=== PATIENT | male | born 1955 | race Caucasian/White ===

== ENCOUNTER 2016-08-18 04:23 | Emergency (ER) | payer OTHER ==
[~2016-08-18] VITALS: Ht 177.8 cm; Wt 117.0 kg
[~2016-08-18 04:23] MED LIST: ASPI-664 PO; ATEN-51 PO; AZIT250T94 PO; BENA10TA48 PO; CODE118S PO; CRES10 PO; IBUP-1542 PO; NAPR-260 PO; PARO30TA48 PO; ULT50 PO
[2016-08-18 04:26] VITALS: Ht 177.8 cm; Wt 117.0 kg
[2016-08-18 04:33] VITALS: BP 176/86; RESP 20; TEMP 97.3
--- NOTE | 2016-08-18 04:35 | ERD ---
ER Documentation Chief Complaint Date/Time DATE: 08/18/16 TIME: 04:34 Chief Complaint sp ground level fall since yesterday, left wrist pain HPI Patient is a 60-year-old male who tripped over a brick yesterday and landed on his left wrist. He now has 10 out of 10 pain in the wrist. Denies any numbness or tingling. Denies any head injury, neck pain, or KO. He Hong wrap his wrist which helped with the pain. Has not taken any medication for pain. ROS All systems reviewed and are negative except as per history of present illness. Medications Home Meds Active Scripts Naproxen* (Naprosyn*) 500 Mg Tablet, 500 MG PO BID Y for PAIN AND/OR INFLAMMATION, #30 TAB Prov:JOSÉ MIGUEL RICHARDSON AIRCRA[employer] MAINTENANCE TECHNICIAN 03/11/16 Tramadol HCl (Tramadol HCl) 50 Mg Tablet, 50 MG PO Q4 Y for PAIN, #20 TAB Prov:APPLE SUN I. AIRCRAFT MAINTENANCE TECHNICIAN 12/11/15 Ibuprofen* (Ibuprofen*) 600 Mg Tablet, 600 MG PO Q6 for 14 Days, TAB Prov:APPLE SUN I. AIRCRAFT MAINTENANCE TECHNICIAN 08/12/15 Ibuprofen* (Motrin*) 600 Mg Tab, 600 MG PO Q6H Y for PAIN AND OR ELEVATED TEMP, #30 Prov:DONOVAN SPRINGER MD 06/07/15 Promethazine w/Codeine (Phenergan w/Codeine Syrup) 120 Ml Syrup, 5 ML PO Q4H Y for COUGH for 7 Days, ML Prov:DONOVAN SPRINGER MD 06/07/15 Azithromycin* (Zithromax*) 250 Mg Tablet, 250 MG PO .SAMIR DIRECTED, #6 TAB TAKE 500 MG (2 TABS) THE FIRST DAY THEN 250 MG (1 TAB) DAYS 2-5 Prov:DONOVAN SPRINGER MD 06/07/15 Reported Medications Rosuvastatin Calcium* (Crestor*) 10 Mg Tablet, 10 MG PO HS, TAB 07/20/14 Paroxetine Hcl* (Paxil*) 30 Mg Tablet, 30 MG PO DAILY, TAB 07/20/14 Benazepril Hcl* (Benazepril Hcl*) 10 Mg Tablet, 10 MG PO DAILY, TAB 07/20/14 Atenolol* (Atenolol*) 25 Mg Tablet, 25 MG PO DAILY, TAB 07/20/14 Aspirin* (Aspirin* (EC)) 81 Mg Tablet.dr, 81 MG PO DAILY, TAB 07/20/14 Allergies Allergies: Coded Allergies: No Known Allergies (Verified Allergy, Mild, 03/11/16) PMhx/Soc History of Surgery: No Anesthesia Reaction: No Hx Neurological Disorder: No Hx Respiratory Disorders: No Hx Cardiac Disorders: No Hx Psychiatric Problems: No Hx Miscellaneous Medical Probl: Yes (diabetes, hypertension, depression) Hx Alcohol Use: No Hx Substance Use: No Hx Tobacco Use: No FmHx Family History: diabetes Physical Exam Vitals Vital Signs Date Time Temp Pulse Resp B/P Pulse Ox O2 Delivery O2 Flow Rate FiO2 08/18/16 04:33 97.3 20 176/86 98 08/18/16 04:26 97.3 83 20 176/86 98 Physical Exam General: well developed, well nourished, alert, nontoxic, no distress Head: normocephalic, atraumatic Neck: Supple, nontender, no lymphadenopathy, no midline tenderness Respiratory: Clear to auscaultation bilaterally, speaks in full sentences, no use of accesory muscles or labored breathing, no rales, ronchi, or wheezing Cardiovascular: RRR, No murmurs Extremities: Left wrist: Radial pulse 2+, no bony abnormalities, no snuffbox tenderness, able to make a fist and oppose thumb to all digits, capillary refill less than 2 seconds, sensation to light touch intact, tenderness to palpation over the ulnar aspect of the wrist Results 24 hrs Current Medications Medications (Trade) Dose Ordered Sig/Deven Route PRN Reason Start Time Stop Time Status Last Admin Dose Admin Acetaminophen/ Hydrocodone Bitart (Walker (10/325)) 1 tab ONCE ONCE PO 08/18/16 05:00 08/18/16 05:01 DC 08/18/16 04:36 Procedures/MDM Patient has wrist pain after mechanical fall. He is neurovascular intact. He Hong wrap his wrist. He was given Walker here for pain control and x-ray was ordered. X-ray shows old fracture of the scaphoid waist and foreign body within the lateral soft tissue which was present on the prior study done in September 2014. Patient was given copy of radiology reports we can follow with primary care as well as prescription for pain medication and he was placed in a Velcro wrist splint. Recommended this patient follow up with her primary care doctor within 48 hours or return to the emergency room for any worsening of symptoms. However this time I do believe there is suitable for outpatient management. I answered all their questions and they agreed with the plan and were discharged home. Departure Diagnosis: Primary Impression: Wrist sprain Condition: Stable DANII BENITEZ PA-C Aug 18, 2016 04:35
[2016-08-18] MEDS ORDERED: HYDROCODONE/APAP (10/325) TAB PO ONE (05:00)
--- NOTE | 2016-08-18 05:50 | RADRPT ---
PROCEDURE: Left wrist. CLINICAL INDICATION: Pain. TECHNIQUE: Three views including PA, lateral and oblique views were performed. COMPARISON: 09/19/2014. FINDINGS: There is a fracture of the scaphoid waist. There is no dislocation. Bone mineralization is within normal limits. There is a 3 x 2 mm radiodensity within the lateral soft tissue. IMPRESSION: Old fracture of the scaphoid waist. Foreign body within the lateral soft tissue, present on the prior study of 09/19/2014. .Luis Boudreaux MD, MD Date Time Electronically viewed and signed by .Luis Boudreaux MD, on 08/18/2016 05:50 .T/
[2016-08-18] MEDS ORDERED: HYDR-902 PO (05:57)
[2016-08-18] MEDS ORDERED: NAPR-260 PO (05:57)
== END 2016-08-18 06:02 | disposition home or self-care (01) ==
LOC: FTE 04:23
DX: S63.502A Unspecified sprain of left wrist, initial encounter (principal); I10 Essential (primary) hypertension; E11.9 Type 2 diabetes mellitus without complications; W01.198A Fall on same level from slipping, tripping and stumbling with subsequent striking against other object, initial encounter; Y92.9 Unspecified place or not applicable; Z79.82 Long term (current) use of aspirin
CPT/HCPCS: 29125; 73110; Z7502; Z7610

== ENCOUNTER 2016-09-02 03:56 | Emergency (ER) | payer OTHER ==
[~2016-09-02] VITALS: Ht 182.9 cm; Wt 116.5 kg
[~2016-09-02 03:56] MED LIST changes: +HYDR-902 PO
[2016-09-02 03:58] VITALS: Ht 182.9 cm; Wt 116.5 kg
--- NOTE | 2016-09-02 05:18 | ERD ---
ER Documentation Chief Complaint Date/Time DATE: 09/02/16 TIME: 05:14 Chief Complaint left hand pain x 2 weeks, sp ground level fall 2 weeks ago HPI 60-year-old male who presents with left hand pain for approximately 2 weeks. The patient states that he sustained a ground-level fall. Since that time he has described persistent pain. He is followed up with his primary care physician and is being referred to hand specialist. The patient describes throbbing moderate to severe pain to the left wrist that is worse with movement and improved with rest. He is only taking tramadol and states that he ran out of his Rodanthe. ROS All systems reviewed and are negative except as per history of present illness. Medications Home Meds Active Scripts Hydrocodone/Acetaminophen (Rodanthe 10-325 Tablet) 1 Each Tablet, 1 TAB PO Q6H Y for PAIN, #15 TAB Prov:DANII BENITEZ PA-C 08/18/16 Naproxen* (Naprosyn*) 500 Mg Tablet, 500 MG PO BID Y for PAIN AND/OR INFLAMMATION, #30 TAB Prov:DANII BENITEZ PA-C 08/18/16 Naproxen* (Naprosyn*) 500 Mg Tablet, 500 MG PO BID Y for PAIN AND/OR INFLAMMATION, #30 TAB Prov:JOSÉ MIGUEL RICHARDSON GINNER 03/11/16 Tramadol HCl (Tramadol HCl) 50 Mg Tablet, 50 MG PO Q4 Y for PAIN, #20 TAB Prov:APPLE SUN I. GINNER 12/11/15 Ibuprofen* (Ibuprofen*) 600 Mg Tablet, 600 MG PO Q6 for 14 Days, TAB Prov:APPLE SUN I. GINNER 08/12/15 Ibuprofen* (Motrin*) 600 Mg Tab, 600 MG PO Q6H Y for PAIN AND OR ELEVATED TEMP, #30 Prov:DONOVAN SPRINGER MD 06/07/15 Promethazine w/Codeine (Phenergan w/Codeine Syrup) 120 Ml Syrup, 5 ML PO Q4H Y for COUGH for 7 Days, ML Prov:DONOVAN SPRINGER MD 06/07/15 Azithromycin* (Zithromax*) 250 Mg Tablet, 250 MG PO .SelenaPACK DIRECTED, #6 TAB TAKE 500 MG (2 TABS) THE FIRST DAY THEN 250 MG (1 TAB) DAYS 2-5 Prov:DONOVAN SPRINGER MD 06/07/15 Reported Medications Rosuvastatin Calcium* (Crestor*) 10 Mg Tablet, 10 MG PO HS, TAB 07/20/14 Paroxetine Hcl* (Paxil*) 30 Mg Tablet, 30 MG PO DAILY, TAB 07/20/14 Benazepril Hcl* (Benazepril Hcl*) 10 Mg Tablet, 10 MG PO DAILY, TAB 07/20/14 Atenolol* (Atenolol*) 25 Mg Tablet, 25 MG PO DAILY, TAB 07/20/14 Aspirin* (Aspirin* (EC)) 81 Mg Tablet.dr, 81 MG PO DAILY, TAB 07/20/14 Allergies Allergies: Coded Allergies: No Known Allergies (Verified Allergy, Mild, 03/11/16) PMhx/Soc History of Surgery: Yes (carpel tunnel bilateral) Anesthesia Reaction: No Hx Neurological Disorder: No Hx Respiratory Disorders: No Hx Cardiac Disorders: No Hx Psychiatric Problems: No Hx Alcohol Use: No Hx Substance Use: No Hx Tobacco Use: No FmHx Family History: No diabetes Physical Exam Vitals Vital Signs Date Time Temp Pulse Resp B/P Pulse Ox O2 Delivery O2 Flow Rate FiO2 09/02/16 03:58 97.8 79 20 162/79 100 Physical Exam General: Well developed, well nourished, no acute distress Head: Normocephalic, atraumatic. Eyes: EOM intact ENT: Moist mucous membranes Neck: Full ROM Respiratory: No respiratory distress Cardiovascular: Good capillary refil Abdominal: Nondistended : Deferred MSK: Soft tissue tenderness and swelling is noted to the left wrist and focal tenderness noted to the radial styloid as well as around the scaphoid bone, no snuffbox tenderness. Radial, median, ulnar nerves appear to be intact, slightly limited range of motion secondary to pain. Good capillary refill. Neurologic: Alert and oriented, moving all extremities, normal speech, steady gait Skin: No rash Psych: Normal mood Procedures/MDM EKG, MONITORS, & DIAGNOSTIC IMAGING: X-ray left wrist: Radiology read -> IMPRESSION: Old fracture of the scaphoid waist. Foreign body within the lateral soft tissue, present on the prior study. PROCEDURES: Splint Application Note: Splint type: Fabricated thumb spica Ortho-Glass Extremity: Left wrist Indication: Cannot rule out scaphoid fracture The patient was consented at bedside prior to splint application and states understanding of risks, benefits, and alternatives. The patient was neurovascularly intact prior to and status post application of the splint. The patient tolerated the procedure well and there were no complications. MEDICAL DECISION MAKING: The patient has persistent left wrist pain with a fall on outstretched hand. The patient seems to have focal tenderness around the carpal bones on the radial side of the wrist. This does raise the concern for possible occult scaphoid fracture. Repeat x-ray imaging seems to be indicated. The patient will be immobilized. His primary care physician is arranging follow-up with a hand specialist. He has had hand surgery on that hand before. The patient is asking for refill of narcotic pain medication. I explained to the patient that we do not regularly do this in the emergency room. The patient 's cures report does show multiple prescriptions of narcotic pain medications but no significant the base of behavior is noted. The patient does get regular prescriptions for benzodiazepines. He is not asking for refill of that medication at this time. A very small prescription seems to be reasonable at this time. ER COURSE: The patient's x-ray and immobilization are documented above. The patient does have appropriate outpatient hand surgery follow-up and can be safely discharged from the emergency room. I kept the patient and/or family informed of laboratory and diagnostic imaging results throughout the emergency room course. DISPOSITION PLAN: We discussed follow up with the patient's primary care doctor within 24 to 48 hours as needed. We also discussed return to the emergency room for worsening symptoms or worsening condition. Discharge Medications: Rodanthe 10 mg a total of 8 tablets Departure Diagnosis: Primary Impression: Left wrist pain Additional Impression: Medication refill Condition: Stable SILVESTRE CEBALLOS MD Sep 02, 2016 05:18
--- NOTE | 2016-09-02 05:38 | RADRPT ---
PROCEDURE: Left wrist. CLINICAL INDICATION: Pain. TECHNIQUE: Three views including PA, lateral and oblique views were performed. COMPARISON: 08/18/2016. FINDINGS: There is an old fracture of the scaphoid waist. There is no dislocation. The joint spaces are with in normal limits. Bone mineralization is within normal limits. There is a 3 x 2 mm radiodensity wi thin the lateral soft tissue. IMPRESSION: Old fracture of the scaphoid waist. Foreign body within the lateral soft tissue, present on the prior study. .Luis Boudreaux MD, MD Date Time Electronically viewed and signed by .Luis Boudreaux MD, on 09/02/2016 05:38 .T/
[2016-09-02] MEDS ORDERED: HYDR-902 PO (05:43)
[2016-09-02 05:53] VITALS: BP 164/77; PULSE 88; RESP 20; TEMP 97.8
== END 2016-09-02 05:55 | disposition home or self-care (01) ==
LOC: FTE 03:56
DX: S69.92XA Unspecified injury of left wrist, hand and finger(s), initial encounter (principal); I10 Essential (primary) hypertension; E11.9 Type 2 diabetes mellitus without complications; W18.39XA Other fall on same level, initial encounter; Y92.9 Unspecified place or not applicable; Z79.82 Long term (current) use of aspirin; Z76.0 Encounter for issue of repeat prescription
CPT/HCPCS: 29125; 73110; Z7502

== ENCOUNTER 2016-12-02 04:17 | Emergency (ER) | payer OTHER ==
[~2016-12-02] VITALS: Ht 167.6 cm; Wt 113.5 kg
[~2016-12-02 04:17] MED LIST changes: +TRAM50TA2 PO; -ULT50 PO
[2016-12-02 04:20] VITALS: Ht 167.6 cm; Wt 113.5 kg
[2016-12-02] MEDS ORDERED: HYDROCODONE/APAP (10/325) TAB PO ONE (05:00)
--- NOTE | 2016-12-02 05:08 | ERD ---
ER Documentation Chief Complaint Date/Time DATE: 12/02/16 TIME: 05:01 Chief Complaint fell off bed at 12am, c/o mid back pain HPI 60-year-old male presents here in emergency department for complaints of lower back pain after falling off the bed 5 hours ago. Patient described the pain as sharp pain, 6/10 scale, is worse upon movement. Patient denies any incontinence. Patient denies any fever or chills. Patient denies any numbness or tingling. Patient was able to ambulate. Patient denies any deformity. Patient did not take any medications elevated symptoms. ROS All systems reviewed and are negative except as per history of present illness. Medications Home Meds Active Scripts Cyclobenzaprine Hcl* (Cyclobenzaprine Hcl*) 10 Mg Tablet, 10 MG PO TID, #15 TAB Prov:PARISH WALKER [employer]ARM [employer]IVER 12/02/16 Ibuprofen* (Motrin*) 600 Mg Tab, 600 MG PO Q6H Y for PAIN AND OR ELEVATED TEMP, #30 TAB Prov:PARISH WALKER NP 12/02/16 Hydrocodone/Acetaminophen (Redfield 5-325 Tablet) 1 Each Tablet, 1 TAB PO Q6H Y for SEVERE PAIN LEVEL 7-10, #20 TAB Prov:PARISH WALKER NP 12/02/16 Hydrocodone/Acetaminophen (Redfield 10-325 Tablet) 1 Each Tablet, 1 TAB PO Q6H Y for PAIN, #8 TAB Prov:SILVESTRE CEBALLOS MD 09/02/16 Hydrocodone/Acetaminophen (Redfield 10-325 Tablet) 1 Each Tablet, 1 TAB PO Q6H Y for PAIN, #15 TAB Prov:DANII BENITEZ PA-C 08/18/16 Naproxen* (Naprosyn*) 500 Mg Tablet, 500 MG PO BID Y for PAIN AND/OR INFLAMMATION, #30 TAB Prov:DANII BENITEZ PA-C 08/18/16 Naproxen* (Naprosyn*) 500 Mg Tablet, 500 MG PO BID Y for PAIN AND/OR INFLAMMATION, #30 TAB Prov:JOSÉ MIGUEL RICHARDSON NP 03/11/16 Tramadol HCl (Tramadol HCl) 50 Mg Tablet, 50 MG PO Q4 Y for PAIN, #20 TAB Prov:APPLE SUN I. FARM TRUCK [employer]IVER 12/11/15 Ibuprofen* (Ibuprofen*) 600 Mg Tablet, 600 MG PO Q6 for 14 Days, TAB Prov:APPLE SUN I. [employer]ARM TRUCK [employer]IVER 08/12/15 Ibuprofen* (Motrin*) 600 Mg Tab, 600 MG PO Q6H Y for PAIN AND OR ELEVATED TEMP, #30 Prov:DONOVAN SPRINGER MD 06/07/15 Promethazine w/Codeine (Phenergan w/Codeine Syrup) 120 Ml Syrup, 5 ML PO Q4H Y for COUGH for 7 Days, ML Prov:DONOVAN SPRINGER MD 06/07/15 Azithromycin* (Zithromax*) 250 Mg Tablet, 250 MG PO .ZPACK DIRECTED, #6 TAB TAKE 500 MG (2 TABS) THE FIRST DAY THEN 250 MG (1 TAB) DAYS 2-5 Prov:DONOVAN SPRINGER MD 06/07/15 Reported Medications Rosuvastatin Calcium* (Crestor*) 10 Mg Tablet, 10 MG PO HS, TAB 07/20/14 Paroxetine Hcl* (Paxil*) 30 Mg Tablet, 30 MG PO DAILY, TAB 07/20/14 Benazepril Hcl* (Benazepril Hcl*) 10 Mg Tablet, 10 MG PO DAILY, TAB 07/20/14 Atenolol* (Atenolol*) 25 Mg Tablet, 25 MG PO DAILY, TAB 07/20/14 Aspirin* (Aspirin* (EC)) 81 Mg Tablet.dr, 81 MG PO DAILY, TAB 07/20/14 Allergies Allergies: Coded Allergies: No Known Allergies (Verified Allergy, Mild, 12/02/16) PMhx/Soc History of Surgery: Yes (carpel tunnel bilateral) Anesthesia Reaction: No Hx Neurological Disorder: No Hx Respiratory Disorders: No Hx Cardiac Disorders: No Hx Psychiatric Problems: No Hx Miscellaneous Medical Probl: Yes (dm, htn) Hx Alcohol Use: No Hx Substance Use: No Hx Tobacco Use: No Smoking Status: Never smoker FmHx Family History: diabetes Physical Exam Vitals Vital Signs Date Time Temp Pulse Resp B/P Pulse Ox O2 Delivery O2 Flow Rate FiO2 12/02/16 06:58 98.4 75 19 128/78 100 Room Air 12/02/16 04:20 96.9 90 20 135/72 98 Physical Exam GENERAL: The patient is well developed and appropriate for usual state of health, in no apparent distress. CHEST: Clear to auscultation bilaterally. There are no rales, wheezes or rhonchi. HEART: Regular rate and rhythm. No murmurs, clicks, rubs or gallops. No S3 or S4. ABDOMEN: Soft, nontender and nondistended. Good bowel sounds. No rebound or guarding. No gross peritonitis. No gross organomegaly or masses. No De León sign or McBurney point tenderness. BACK: No midline or flank tenderness. Muscle spasms noted and tenderness on palpation noted of the lumbar spine, able do full range of motion without any restriction. EXTREMITIES: Equal pulses bilaterally. There is no peripheral clubbing, cyanosis or edema. No focal swelling or erythema. Full range of motion. Grossly neurovascularly intact. NEURO: Alert and oriented. Cranial nerves 2-12 intact. Motor strength in all 4 extremities with 5/5 strength. Sensation grossly intact. Normal speech and gait. SKIN: There is no apparent rash or petechia. The skin is warm and dry. HEMATOLOGIC AND LYMPHATIC: There is no evidence of excessive bruising or lymphedema. No gross cervical, axillary, or inguinal lymphadenopathy. Results 24 hrs Current Medications Medications (Trade) Dose Ordered Sig/Deven Route PRN Reason Start Time Stop Time Status Last Admin Dose Admin Acetaminophen/ Hydrocodone Bitart (Redfield (10/325)) 1 tab ONCE ONCE PO 12/02/16 05:00 12/02/16 05:01 DC 12/02/16 04:49 Patient was given medication for pain here in emergency department, after treatment, patient verbalized feeling much better. Patient's pain is improved. PROCEDURE: CT LUMBAR SPINE WITHOUT CONTRAST CLINICAL INDICATION: 60-year-old male with back pain following trauma. TECHNIQUE: The study was performed utilizing a [employer] VCT CT scanner. Direct axial sections were obtained through the lumbar spine. Coronal and sagittal re-formations were obtained. One or more of the following dose reduction techniques were utilized: automated exposure control, adjustment of the mA and/or kV according to patient's size or use of iterative reconstruction technique. The images were viewed on a PACS workstation. CTD/vol = 38.4 mGy; Total Exam DLP = 917.7 mGy-cm. COMPARISON: CT abdomen/pelvis January 09, 2015. FINDINGS: The lumbar vertebral bodies have normal heights without evidence for an acute fracture. At L1-2 there is moderate disk space narrowing. There is a prominent anterior osteophyte. There is minimal diffuse disk bulge. This is resulting in minimal central spinal stenosis. At L2-3 there is moderate disk space narrowing with a vacuum disk present. There is minimal retrolisthesis. There is moderate diffuse disk bulge and mild bilateral facet degenerative changes. There is hypertrophy of the ligamentum flavum. This is resulting in moderate right and uhhy-dh-dizlctww left subarticular recess stenosis with moderate central spinal stenosis. At L3-4 there is moderate posterior disk space narrowing with minimal retrolisthesis. There is a small Schmorl's node involving the inferior endplate of the L3 vertebral body. There is moderate diffuse disk bulge and facet degenerative changes. There is mild hypertrophy of the ligamentum flavum. This is resulting in moderate right and orek-hq-lcmrizvb left subarticular recess stenosis. There is moderate central spinal stenosis. At L4-5 there is mild disk space narrowing with a vacuum disk present. There is moderate right lateral diffuse disk bulge and bilateral facet degenerative changes with hypertrophy of the ligamentum flavum. This is resulting in ljodgfpj-fv-fcwqpz right and moderate left subarticular recess stenosis. There is zgqhpogf-bw-vxdvio central spinal stenosis. At L5-S1 there is marked disk space narrowing. There is a vacuum disk present. There is diffuse disk bulge with bilateral lateral osteophytes. There is moderate bilateral facet arthropathy. There is gas identified within the left posterior lateral interspace extending into the far lateral neural foramen. There is severe bilateral foraminal stenosis. There is xlsz-li-aefwxagq central spinal stenosis. IMPRESSION: 1. No CT evidence for acute lumbar spine fracture. 2. Marked multilevel discogenic and degenerative changes similar appearance to the patient's prior study from December 2014. .Martin Mendoza MD, Date Time Electronically viewed and signed by .Martin Mendoza MD, on 12/02/2016 06:26 .M/ CC: PARISH WALKER [employer] Procedures/MDM Medical Decision Making: Patient's pain is most likely consistent with a back contusion and muscle strain. There is no suspicion for neurovascular compromise. Patient has intact sensation and circulation of the affected extremity. There is low suspicion for septic arthritis. Patient does not have any fever. Radiology exams of the affected area does not show any fracture or dislocation. No suspicion for cauda equina syndrome, epidural abscess, or any acute bacterial infection. Disposition: Home. Patient is given prescription for ibuprofen for mild to moderate pain Redfield for severe pain and Flexeril for muscle spasm. Patient was advised to avoid heavy lifting, apply ice on affected area. Patient was advised that if symptoms are worse, numbness, tingling, high fever, unable to move joint, worsening symptoms, to return to emergency department immediately. Otherwise, patient is advised to follow up with the primary care doctor in 5-7 days for reevaluation of symptoms. Departure Diagnosis: Primary Impression: Back pain Back pain location: low back pain Chronicity: acute Back pain laterality: bilateral Sciatica presence: without sciatica Qualified Code: M54.5 - Acute bilateral low back pain without sciatica Condition: Stable Patient Instructions: Back Pain (Acute Or Chronic) Additional Instructions: Patient is given prescription for ibuprofen for mild to moderate pain Redfield for severe pain and Flexeril for muscle spasm. Patient was advised to avoid heavy lifting, apply ice on affected area. Patient was advised that if symptoms are worse, numbness, tingling, high fever, unable to move joint, worsening symptoms , to return to emergency department immediately. Otherwise, patient is advised to follow up with the primary care doctor in 5-7 days for reevaluation of symptoms. PARISH WALKER NP Dec 02, 2016 05:08
[2016-12-02] MEDS ORDERED: HYDR-906 PO (05:50)
[2016-12-02] MEDS ORDERED: CYCL-319 PO (05:50)
[2016-12-02] MEDS ORDERED: IBUP-1542 PO (05:50)
--- NOTE | 2016-12-02 06:26 | RADRPT ---
PROCEDURE: CT LUMBAR SPINE WITHOUT CONTRAST CLINICAL INDICATION: 60-year-old male with back pain following trauma. TECHNIQUE: The study was performed utilizing a [employer] VCT CT scanner. Direct axial section s were obtained through the lumbar spine. Coronal and sagittal re-formations were obtained. One or more of the following dose reduction techniques were utilized: automated exposure control, adjustmen t of the mA and/or kV according to patient's size or use of iterative reconstruction technique. Th e images were viewed on a PACS workstation. CTD/vol = 38.4 mGy; Total Exam DLP = 917.7 mGy-cm. COMPARISON: CT abdomen/pelvis January 09, 2015. FINDINGS: The lumbar vertebral bodies have normal heights without evidence for an acute fracture. At L1-2 there is moderate disk space narrowing. There is a prominent anterior osteophyte. There is minimal diffuse disk bulge. This is resulting in minimal central spinal stenosis. At L2-3 there is moderate disk space narrowing with a vacuum disk present. There is minimal retroli sthesis. There is moderate diffuse disk bulge and mild bilateral facet degenerative changes. There is hypertrophy of the ligamentum flavum. This is resulting in moderate right and iqyw-em-jplcsoey left subarticular recess stenosis with moderate central spinal stenosis. At L3-4 there is moderate posterior disk space narrowing with minimal retrolisthesis. There is a sma ll Schmorl's node involving the inferior endplate of the L3 vertebral body. There is moderate diffus e disk bulge and facet degenerative changes. There is mild hypertrophy of the ligamentum flavum. T his is resulting in moderate right and loho-ph-lkbhiway left subarticular recess stenosis. There is moderate central spinal stenosis. At L4-5 there is mild disk space narrowing with a vacuum disk present. There is moderate right late ral diffuse disk bulge and bilateral facet degenerative changes with hypertrophy of the ligamentum f lavum. This is resulting in psgedqgr-zr-pjpnrt right and moderate left subarticular recess stenosis . There is uxbbqshm-bm-rlrurx central spinal stenosis. At L5-S1 there is marked disk space narrowing. There is a vacuum disk present. There is diffuse di sk bulge with bilateral lateral osteophytes. There is moderate bilateral facet arthropathy. There is gas identified within the left posterior lateral interspace extending into the far lateral neural foramen. There is severe bilateral foraminal stenosis. There is jhqy-lq-nqmvowkt central spinal s tenosis. IMPRESSION: 1. No CT evidence for acute lumbar spine fracture. 2. Marked multilevel discogenic and degenerative changes similar appearance to the patient's prior study from December 2014. .Martin Mendoza MD, Date Time Electronically viewed and signed by .Martin Mendoza MD, MD on 12/02/2016 06:26 .M/
[2016-12-02 06:58] VITALS: BP 128/78; PULSE 75; RESP 19; TEMP 98.4
== END 2016-12-02 06:58 | disposition home or self-care (01) ==
LOC: FTE 04:17
DX: M54.5 Low back pain (principal); E11.9 Type 2 diabetes mellitus without complications; I10 Essential (primary) hypertension; Z04.3 Encounter for examination and observation following other accident; Z79.82 Long term (current) use of aspirin
CPT/HCPCS: 72131; Z7502; Z7610

== ENCOUNTER 2016-12-31 04:39 | Emergency (ER) | payer OTHER ==
[~2016-12-31] VITALS: Ht 167.6 cm; Wt 114.5 kg
[~2016-12-31 04:39] MED LIST changes: +CYCL-319 PO; +HYDR-906 PO
[2016-12-31 04:44] VITALS: Ht 167.6 cm; Wt 114.5 kg
[2016-12-31] MEDS ORDERED: IBUP-1542 PO (05:54)
--- NOTE | 2016-12-31 06:01 | ERA ---
ER Documentation Chief Complaint Date/Time DATE: 12/31/16 TIME: 05:57 Chief Complaint Chronic back pain. worst tonight HPI Delightful 61-year-old male presenting for back pain. Patient's back pain has been chronic. Patient was seen in the ER November for the same symptoms. Patient received a CT scan which showed mild degenerative changes in the lumbar spine that had not changed since 2014. Patient denies difficulty voiding or loss of control of his bowel or bladder. Patient has no other complaints and there are no other associated manifestations. ROS All systems reviewed and are negative except as per history of present illness. Medications Home Meds Active Scripts Ibuprofen* (Motrin*) 600 Mg Tab, 600 MG PO Q6H Y for PAIN AND OR ELEVATED TEMP, #30 TAB Prov:DONOVAN HOLCOMB PA-C 12/31/16 Cyclobenzaprine Hcl* (Cyclobenzaprine Hcl*) 10 Mg Tablet, 10 MG PO TID, #15 TAB Prov:PARISH WALKER NP 12/02/16 Ibuprofen* (Motrin*) 600 Mg Tab, 600 MG PO Q6H Y for PAIN AND OR ELEVATED TEMP, #30 TAB Prov:PARISH WALKER PACKAGE LINER 12/02/16 Hydrocodone/Acetaminophen ([place] 5-325 Tablet) 1 Each Tablet, 1 TAB PO Q6H Y for SEVERE PAIN LEVEL 7-10, #20 TAB Prov:PARISH WALKER PACKAGE LINER 12/02/16 Hydrocodone/Acetaminophen ([place] 10-325 Tablet) 1 Each Tablet, 1 TAB PO Q6H Y for PAIN, #8 TAB Prov:SILVESTRE CEBALLOS MD 09/02/16 Hydrocodone/Acetaminophen ([place] 10-325 Tablet) 1 Each Tablet, 1 TAB PO Q6H Y for PAIN, #15 TAB Prov:DANII BENITEZ PA-C 08/18/16 Naproxen* (Naprosyn*) 500 Mg Tablet, 500 MG PO BID Y for PAIN AND/OR INFLAMMATION, #30 TAB Prov:DANII BENITEZ PA-C 08/18/16 Naproxen* (Naprosyn*) 500 Mg Tablet, 500 MG PO BID Y for PAIN AND/OR INFLAMMATION, #30 TAB Prov:JOSÉ MIGUEL RICHARDSON NP 03/11/16 Tramadol HCl (Tramadol HCl) 50 Mg Tablet, 50 MG PO Q4 Y for PAIN, #20 TAB Prov:SUNAPPLE MCNAMARA I. PACKAGE LINER 12/11/15 Ibuprofen* (Ibuprofen*) 600 Mg Tablet, 600 MG PO Q6 for 14 Days, TAB Prov:APPLE SUN I. PACKAGE LINER 08/12/15 Ibuprofen* (Motrin*) 600 Mg Tab, 600 MG PO Q6H Y for PAIN AND OR ELEVATED TEMP, #30 Prov:DONOVAN SPRINGER MD 06/07/15 Promethazine w/Codeine (Phenergan w/Codeine Syrup) 120 Ml Syrup, 5 ML PO Q4H Y for COUGH for 7 Days, ML Prov:DONOVAN SPRINGER MD 06/07/15 Azithromycin* (Zithromax*) 250 Mg Tablet, 250 MG PO .ANGELCK DIRECTED, #6 TAB TAKE 500 MG (2 TABS) THE FIRST DAY THEN 250 MG (1 TAB) DAYS 2-5 Prov:DONOVAN SPRINGER MD 06/07/15 Reported Medications Rosuvastatin Calcium* (Crestor*) 10 Mg Tablet, 10 MG PO HS, TAB 07/20/14 Paroxetine Hcl* (Paxil*) 30 Mg Tablet, 30 MG PO DAILY, TAB 07/20/14 Benazepril Hcl* (Benazepril Hcl*) 10 Mg Tablet, 10 MG PO DAILY, TAB 07/20/14 Atenolol* (Atenolol*) 25 Mg Tablet, 25 MG PO DAILY, TAB 07/20/14 Aspirin* (Aspirin* (EC)) 81 Mg Tablet.dr, 81 MG PO DAILY, TAB 07/20/14 Allergies Allergies: Coded Allergies: No Known Allergies (Verified Allergy, Mild, 12/31/16) PMhx/Soc History of Surgery: Yes (carpel tunnel bilateral) Anesthesia Reaction: No Hx Neurological Disorder: No Hx Respiratory Disorders: No Hx Cardiac Disorders: Yes (htn, dm) Hx Psychiatric Problems: No Hx Miscellaneous Medical Probl: Yes (dm, htn) Hx Alcohol Use: No Hx Substance Use: No Hx Tobacco Use: No Smoking Status: Never smoker Physical Exam Vitals Vital Signs Date Time Temp Pulse Resp B/P Pulse Ox O2 Delivery O2 Flow Rate FiO2 12/31/16 04:44 97.9 88 20 110/69 97 Physical Exam Const: [] Head: Atraumatic Eyes: Normal Conjunctiva ENT: Normal External Ears, Nose and Mouth. Neck: Full range of motion..~ No meningismus. Resp: Clear to auscultation bilaterally Cardio: Regular rate and rhythm, no murmurs Abd: Soft, non tender, non distended. Normal bowel sounds Skin: No petechiae or rashes Back: No midline or flank tenderness Ext: No cyanosis, or edema Neur: Awake and alert Psych: Normal Mood and Affect Procedures/MDM Patient was worked up and evaluated for back pain. Patient's back pain has been chronic in nature. Patient was last seen in November and told to a specialist which she has not done yet. At this time I have little suspicion for cauda equina or endangerment of the spinal cord. The neuro exam and vascular exam were unremarkable. I will discharge patient with ibuprofen for pain management and suggest see a specialist as she was suggested the last time he was here. Patient's vitals are stable and his current condition is appropriate for discharge. Departure Diagnosis: Primary Impression: Chronic back pain Qualified Code: M54.5 - Chronic low back pain, unspecified back pain laterality, with sciatica presence unspecified Condition: Stable Patient Instructions: Back Pain (Acute Or Chronic) Additional Instructions: Follow up with your PCP within the next 1-3 days for a more thorough evaluation and a possible referral to a specialist. Return the the emergency department immediately if symptoms worsen or change. If you have any questions regarding medications, ask your pharmacist or us before you leave. If any adverse reactions occur while taking your medications, discontinue the treatment and return to the emergency department immediately. Take your medications as directed, and complete the entire course of treatment. DONOVAN HOLCOMB PA-C December 31, 2016 06:01
== END 2016-12-31 06:03 | disposition home or self-care (01) ==
LOC: FTE 04:39
DX: M54.5 Low back pain (principal); I10 Essential (primary) hypertension; E11.9 Type 2 diabetes mellitus without complications; Z79.82 Long term (current) use of aspirin
CPT/HCPCS: 99283

== ENCOUNTER 2017-02-24 02:56 | Emergency (ER) | payer OTHER ==
[~2017-02-24] VITALS: Ht 167.6 cm; Wt 113.5 kg
[2017-02-24 03:06] VITALS: Ht 167.6 cm; Wt 113.5 kg
[2017-02-24] MEDS ORDERED: BUTA1CAP39 PO (03:29)
--- NOTE | 2017-02-24 03:42 | ERD ---
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 Patient ran out of his Vicodin. Patient took ibuprofen for pain with only mild relief. Patient denies any head injury. Patient denies any numbness or tingling, blurry vision. Patient had multiple radiology exams done of his brain, was told to be normal, with nausea vomiting. Patient is complaints of pain as throbbing pain, 6/10 scale, intermittent, accompanied with photophobia and phonophobia. ROS All systems reviewed and are negative except as per history of present illness. Medications Home Meds Active Scripts Gecmiufnotegh-Uzftuhpaut-Itbfsgey-Codeine* (Fioricet w/ Codeine*) [id number] 30MG Capsule, 1 CAP PO Q6H Y for PAIN LEVEL 1-5, #15 CAP Prov:PARISH WALKER NP 02/24/17 Ibuprofen* (Motrin*) 600 Mg Tab, 600 MG PO Q6H Y for PAIN AND OR ELEVATED TEMP, #30 TAB Prov:DONOVAN HOLCOMB PA-C 12/31/16 Cyclobenzaprine Hcl* (Cyclobenzaprine Hcl*) 10 Mg Tablet, 10 MG PO TID, #15 TAB Prov:PARISH WALKER NP 12/02/16 Ibuprofen* (Motrin*) 600 Mg Tab, 600 MG PO Q6H Y for PAIN AND OR ELEVATED TEMP, #30 TAB Prov:PARISH WALKER NP 12/02/16 Hydrocodone/Acetaminophen ([place] 5-325 Tablet) 1 Each Tablet, 1 TAB PO Q6H Y for SEVERE PAIN LEVEL 7-10, #20 TAB Prov:PARISH WALKER NP 12/02/16 Hydrocodone/Acetaminophen ([place] 10-325 Tablet) 1 Each Tablet, 1 TAB PO Q6H Y for PAIN, #8 TAB Prov:SILVESTRE CEBALLOS MD 09/02/16 Hydrocodone/Acetaminophen ([place] 10-325 Tablet) 1 Each Tablet, 1 TAB PO Q6H Y for PAIN, #15 TAB Prov:DANII BENITEZ PA-C 08/18/16 Naproxen* (Naprosyn*) 500 Mg Tablet, 500 MG PO BID Y for PAIN AND/OR INFLAMMATION, #30 TAB Prov:DANII BENITEZ PA-C 08/18/16 Naproxen* (Naprosyn*) 500 Mg Tablet, 500 MG PO BID Y for PAIN AND/OR INFLAMMATION, #30 TAB Prov:JOSÉ MIGUEL RICHARDSON AGENT SPA DESK 03/11/16 Tramadol HCl (Tramadol HCl) 50 Mg Tablet, 50 MG PO Q4 Y for PAIN, #20 TAB Prov:APPLE SUN I. AGENT SPA DESK 12/11/15 Ibuprofen* (Ibuprofen*) 600 Mg Tablet, 600 MG PO Q6 for 14 Days, TAB Prov:APPLE SUN I. AGENT SPA DESK 08/12/15 Ibuprofen* (Motrin*) 600 Mg Tab, 600 MG PO Q6H Y for PAIN AND OR ELEVATED TEMP, #30 Prov:DONOVAN SPRINGER MD 06/07/15 Promethazine w/Codeine (Phenergan w/Codeine Syrup) 120 Ml Syrup, 5 ML PO Q4H Y for COUGH for 7 Days, ML Prov:DONOVAN SPRINGER MD 06/07/15 Azithromycin* (Zithromax*) 250 Mg Tablet, 250 MG PO .SAMIR DIRECTED, #6 TAB TAKE 500 MG (2 TABS) THE FIRST DAY THEN 250 MG (1 TAB) DAYS 2-5 Prov:DONOVAN SPRINGER MD 06/07/15 Reported Medications Rosuvastatin Calcium* (Crestor*) 10 Mg Tablet, 10 MG PO HS, TAB 07/20/14 Paroxetine Hcl* (Paxil*) 30 Mg Tablet, 30 MG PO DAILY, TAB 07/20/14 Benazepril Hcl* (Benazepril Hcl*) 10 Mg Tablet, 10 MG PO DAILY, TAB 07/20/14 Atenolol* (Atenolol*) 25 Mg Tablet, 25 MG PO DAILY, TAB 07/20/14 Aspirin* (Aspirin* (EC)) 81 Mg Tablet.dr, 81 MG PO DAILY, TAB 07/20/14 Allergies Allergies: Coded Allergies: No Known Allergies (Verified Allergy, Mild, 12/31/16) PMhx/Soc History of Surgery: Yes (carpel tunnel bilateral) Anesthesia Reaction: No Hx Neurological Disorder: No Hx Respiratory Disorders: No Hx Cardiac Disorders: Yes (htn, dm) Hx Psychiatric Problems: No Hx Miscellaneous Medical Probl: Yes (dm, htn) Hx Alcohol Use: No Hx Substance Use: No Hx Tobacco Use: No Smoking Status: Never smoker FmHx Family History: No coronary disease, No diabetes, No other Physical Exam Vitals Vital Signs Date Time Temp Pulse Resp B/P Pulse Ox O2 Delivery O2 Flow Rate FiO2 02/24/17 03:06 98.3 82 18 120/59 95 Physical Exam GENERAL: The patient is well developed and appropriate for usual state of health, in no apparent distress. CHEST: Clear to auscultation bilaterally. There are no rales, wheezes or rhonchi. HEART: Regular rate and rhythm. No murmurs, clicks, rubs or gallops. No S3 or S4. ABDOMEN: Soft, nontender and nondistended. Good bowel sounds. No rebound or guarding. No gross peritonitis. No gross organomegaly or masses. No De León sign or McBurney point tenderness. BACK: No midline or flank tenderness. EXTREMITIES: Equal pulses bilaterally. There is no peripheral clubbing, cyanosis or edema. No focal swelling or erythema. Full range of motion. Grossly neurovascularly intact. NEURO: Alert and oriented. Cranial nerves 2-12 intact. Motor strength in all 4 extremities with 5/5 strength. Sensation grossly intact. Normal speech and gait. Negative Romberg sign. Negative pronator drift. SKIN: There is no apparent rash or petechia. The skin is warm and dry. HEMATOLOGIC AND LYMPHATIC: There is no evidence of excessive bruising or lymphedema. No gross cervical, axillary, or inguinal lymphadenopathy. Results 24 hrs PROCEDURE: CT Brain without contrast. 06/07/2015. 0905 hours. CLINICAL INDICATION: Occipital headache. TECHNIQUE: A CT of the brain without contrast was performed utilizing axial sections from the skull base through the vertex. The patient was scanned without intravenous contrast enhancement. Sagittal and coronal reformatted images were obtained using the data from the axial images. Total exam DLP is 601.98 mGy-cm. CTDIvol is 36.34 mGy. COMPARISON: 02/01/2014. FINDINGS: There is normal joaquin-white matter differentiation. There is mild enlargement of the ventricles and subarachnoid spaces consistent with atrophy. Vascular calcifications are present consistent with atherosclerosis. There is no intracranial hemorrhage or space-occupying lesion. There is no skull fracture or lytic lesion. IMPRESSION: 1. Mild atrophy. 2. Atherosclerosis. 3. No change from 02/01/2014. 4. No intracranial hemorrhage. RPTAT: QQ .Jarek John, Date Time Electronically viewed and signed by .Jarek John, on 06/07/2015 09:12 .R/ CC: DONOVAN SPRINGER MD Procedures/MDM Medical Decision Making: Patient symptoms are consistent with migraine headache , possible tension headache. There is low suspicion for neurological emergencies at this time since patients neurologic exam is normal. Patient did not have any altered level consciousness, vomiting, changes in balance or memory and did not have any head injury. Patients CT scan of the head is not indicated at this time. Rx: Fioricet with codeine Dispostion: Home. Stable Departure Diagnosis: Primary Impression: Headache Headache type: unspecified Headache chronicity pattern: acute headache Intractability: not intractable Qualified Code: R51 - Acute nonintractable headache, unspecified headache type Condition: Stable Patient Instructions: Self-Care for Headaches PARISH WALKER NP Feb 24, 2017 03:42
== END 2017-02-24 03:33 | disposition home or self-care (01) ==
LOC: FTE 02:56
DX: R51 Headache (principal); I10 Essential (primary) hypertension; E11.9 Type 2 diabetes mellitus without complications; Z79.82 Long term (current) use of aspirin
CPT/HCPCS: 99283

== ENCOUNTER 2017-03-24 03:51 | Emergency (ER) | payer OTHER ==
[~2017-03-24] VITALS: Ht 177.8 cm; Wt 111.5 kg
[~2017-03-24 03:51] MED LIST changes: +BUTA1CAP39 PO
[2017-03-24 03:55] VITALS: Ht 177.8 cm; Wt 111.5 kg
[2017-03-24] MEDS ORDERED: KETOROLAC 30 MG INJ IM STA (04:26)
[2017-03-24] MEDS ORDERED: IBUP-1542 PO (04:28)
--- NOTE | 2017-03-24 04:42 | ERA ---
ER Documentation Chief Complaint Date/Time DATE: 03/24/17 TIME: 04:37 Chief Complaint back pain sustained while carrying heavy boxes HPI Obese 61-year-old male presenting with a chief complaints of chronic back pain 5 months. Patient states that he has an appointment for surgery on April [address] Rodriges. Is wanting pain medications to cover the period from now until the surgery. Patient denies history of cancer, recent illness, unexplained weight loss, saddle anesthesia, generalized neurological deficit, incontinence, urinary retention, thoracic pain, or pain at rest. Review of records reveals the patient has presented to the emergency department many times for many different reasons requesting pain medications. No other complaints and describes no other associated manifestations. Nursing notes have been reviewed. ROS All systems reviewed and are negative except as per history of present illness. Medications Home Meds Active Scripts Ibuprofen* (Motrin*) 600 Mg Tab, 600 MG PO Q6, #30 TAB Prov:DONOVAN HOLCOMB PA-C 03/24/17 Wwelgppttwajk-Ahwyzjcrhk-Zavzkvph-Codeine* (Fioricet w/ Codeine*) [id number] 30MG Capsule, 1 CAP PO Q6H Y for PAIN LEVEL 1-5, #15 CAP Prov:PARISH WALKER LOGISTICS MANAGER 02/24/17 Ibuprofen* (Motrin*) 600 Mg Tab, 600 MG PO Q6H Y for PAIN AND OR ELEVATED TEMP, #30 TAB Prov:DONOVAN HOLCOMB PA-C 12/31/16 Cyclobenzaprine Hcl* (Cyclobenzaprine Hcl*) 10 Mg Tablet, 10 MG PO TID, #15 TAB Prov:PARISH WALKER LOGISTICS MANAGER 12/02/16 Ibuprofen* (Motrin*) 600 Mg Tab, 600 MG PO Q6H Y for PAIN AND OR ELEVATED TEMP, #30 TAB Prov:PARISH WALKER LOGISTICS MANAGER 12/02/16 Hydrocodone/Acetaminophen ([place] 5-325 Tablet) 1 Each Tablet, 1 TAB PO Q6H Y for SEVERE PAIN LEVEL 7-10, #20 TAB Prov:PARISH WALKER LOGISTICS MANAGER 12/02/16 Hydrocodone/Acetaminophen ([place] 10-325 Tablet) 1 Each Tablet, 1 TAB PO Q6H Y for PAIN, #8 TAB Prov:SILVESTRE CEBALLOS MD 09/02/16 Hydrocodone/Acetaminophen ([place] 10-325 Tablet) 1 Each Tablet, 1 TAB PO Q6H Y for PAIN, #15 TAB Prov:DANII BENITEZ PA-C 08/18/16 Naproxen* (Naprosyn*) 500 Mg Tablet, 500 MG PO BID Y for PAIN AND/OR INFLAMMATION, #30 TAB Prov:DANII BENITEZ PA-C 08/18/16 Naproxen* (Naprosyn*) 500 Mg Tablet, 500 MG PO BID Y for PAIN AND/OR INFLAMMATION, #30 TAB Prov:JOSÉ MIGUEL RICHARDSON LOGISTICS MANAGER 03/11/16 Tramadol HCl (Tramadol HCl) 50 Mg Tablet, 50 MG PO Q4 Y for PAIN, #20 TAB Prov:APPLE SUN I. LOGISTICS MANAGER 12/11/15 Ibuprofen* (Ibuprofen*) 600 Mg Tablet, 600 MG PO Q6 for 14 Days, TAB Prov:APPLE SUN I. LOGISTICS MANAGER 08/12/15 Ibuprofen* (Motrin*) 600 Mg Tab, 600 MG PO Q6H Y for PAIN AND OR ELEVATED TEMP, #30 Prov:DONOVAN SPRINGER MD 06/07/15 Promethazine w/Codeine (Phenergan w/Codeine Syrup) 120 Ml Syrup, 5 ML PO Q4H Y for COUGH for 7 Days, ML Prov:DONOVAN SPRINGER MD 06/07/15 Azithromycin* (Zithromax*) 250 Mg Tablet, 250 MG PO .ANGELCK DIRECTED, #6 TAB TAKE 500 MG (2 TABS) THE FIRST DAY THEN 250 MG (1 TAB) DAYS 2-5 Prov:DONOVAN SPRINGER MD 06/07/15 Reported Medications Rosuvastatin Calcium* (Crestor*) 10 Mg Tablet, 10 MG PO HS, TAB 07/20/14 Paroxetine Hcl* (Paxil*) 30 Mg Tablet, 30 MG PO DAILY, TAB 07/20/14 Benazepril Hcl* (Benazepril Hcl*) 10 Mg Tablet, 10 MG PO DAILY, TAB 07/20/14 Atenolol* (Atenolol*) 25 Mg Tablet, 25 MG PO DAILY, TAB 07/20/14 Aspirin* (Aspirin* (EC)) 81 Mg Tablet.dr, 81 MG PO DAILY, TAB 07/20/14 Allergies Allergies: Coded Allergies: codeine (Verified Allergy, Mild, 03/24/17) PMhx/Soc History of Surgery: Yes (carpel tunnel bilateral) Anesthesia Reaction: No Hx Neurological Disorder: Yes (depression) Hx Respiratory Disorders: No Hx Cardiac Disorders: Yes (htn, dm) Hx Psychiatric Problems: No Hx Miscellaneous Medical Probl: Yes (dm) Hx Alcohol Use: No Hx Substance Use: No Hx Tobacco Use: No Smoking Status: Never smoker Physical Exam Vitals Vital Signs Date Time Temp Pulse Resp B/P Pulse Ox O2 Delivery O2 Flow Rate FiO2 03/24/17 03:55 97.4 94 20 137/71 97 Physical Exam Const: Healthy-appearing. Well-nourished. Well-developed. No acute distress. Head: Normocephalic, Atraumatic. Eyes: Non-injected; No discharge or foreign body. EOMI and AISLINN bilaterally. Ears: Normal External Ears, EACs clear, TM normal bilaterally without erythema. Nose: Normal external nose; no discharge, septal deviation, or sinus tenderness. Oral: No oral edema visualized. Mucous membranes moist and pink. Neck: No cervical lymphadenopathy, masses or goiter palpated. Trachea midline. Supple ~ No meningismus. Pulm: Good air movement in upper and lower respiratory tracts. No dyspnea, stridor, tripoding or drooling. Clear to auscultation bilaterally. Cardio: Regular rate and rhythm; No murmurs, gallops or rubs auscultated. No JVD grossly observed. Radial and posterior tibial pulses 2+ bilaterally. No cyanosis. Capillary refill less than 2 seconds. Abd: Soft, non tender, non distended. No guarding, masses. Normal bowel sounds. MS: Normal motor strength, normal tone with gross examination. Skin: No petechiae or rashes. No ulcer, induration, jaundice. Good turgor. See extremity exam. Back: No midline, flank or CVA tenderness. Mild paraspinal muscle tenderness around the lumbar region. Ext: No edema or palpable cord. Patient refused to take of sleeves for thorough extremity/skin examination. Normal movement of all extremities grossly observed. Neur: Awake, alert and oriented x3. Neurovascularly intact bilaterally. Psych: Normal Mood and Affect. Results 24 hrs Current Medications Medications (Trade) Dose Ordered Sig/Deven Route PRN Reason Start Time Stop Time Status Last Admin Dose Admin Ketorolac Tromethamine (Toradol) 30 mg ONCE STAT IM 03/24/17 04:26 03/24/17 04:28 DC 03/24/17 04:37 Procedures/MDM 61-year-old male presenting with a chief complaints of back pain 5+ months. Patient has been to the ED for many different complaints over the past couple years. I performed a thorough physical exam which revealed no remarkable findings. He is currently displaying drug-seeking behaviors and review of documents displays this as well. Patient states that he has no allergies, has taken Toradol before and was not allergic. I have explained to the patient that narcotics are not indicated for chronic back pain, and that for chronic back pain management he should see a pain specialist. I have suggested that he follow-up with his primary care provider for further evaluation and possible referral to subspecialist. Toradol 30 mg IM was given in the ED. Outpatient treatment will consist of ibuprofen. No red flags for imaging. CT on 12/02/2016 was given the following impression by the radiologist: 1. No CT evidence for acute lumbar spine fracture. 2. Marked multilevel discogenic and degenerative changes similar appearance to the patient's prior study from December 2014. At this time I do not suspect cauda equina syndrome, spinal cord compression, aortic aneurysm, aortic dissection, epidural abscess, spinal hematoma, malignancy, kidney stones, pyelonephritis, or other serious infection/ neurovascular compromise. I have spoke with the patient regarding their condition and future management. They have verbally responded that they understand their status and treatment plan. The patients vitals are stable, and their current condition is appropriate for discharge. The patient will be given discharge instructions with return precautions. Departure Diagnosis: Primary Impression: Drug-seeking behavior Additional Impression: Back pain Qualified Code: M54.5 - Chronic bilateral low back pain, with sciatica presence unspecified Condition: Stable Patient Instructions: Back Pain (Acute Or Chronic) Additional Instructions: Follow up with your PCP within the next 1-3 days for a more thorough evaluation and a possible referral to a specialist. Return the the emergency department immediately if symptoms worsen or change. If you have any questions regarding medications, ask your pharmacist or us before you leave. If any adverse reactions occur while taking your medications, discontinue the treatment and return to the emergency department immediately. Take your medications as directed, and complete the entire course of treatment. DONOVAN HOLCOMB PA-C Mar 24, 2017 04:42
== END 2017-03-24 04:40 | disposition home or self-care (01) ==
LOC: FTE 03:51
DX: M54.5 Low back pain (principal); I10 Essential (primary) hypertension; E11.9 Type 2 diabetes mellitus without complications; Z79.82 Long term (current) use of aspirin; Z76.5 Malingerer [conscious simulation]
CPT/HCPCS: 96372; J1885

== ENCOUNTER 2017-09-29 13:56 | Emergency (ER) | END 2017-09-29 20:17 | disposition home or self-care (01) ==

== ENCOUNTER 2017-12-06 10:12 | Emergency (ER) | END 2017-12-06 12:55 | disposition home or self-care (01) ==

== ENCOUNTER 2018-02-22 09:44 | Emergency (ER) | END 2018-02-22 11:30 | disposition home or self-care (01) ==

== ENCOUNTER 2018-08-05 11:45 | Emergency (ER) | END 2018-08-05 14:27 | disposition home or self-care (01) ==